=== PATIENT | female | born 2000 | race Caucasian/White ===

== ENCOUNTER → 2022-09-11 08:28 | Outpatient (CLI) | payer OTHER, SELFPAY ==
--- NOTE | 2022-09-11 08:30 | DI.US.S_ITS ---
PROCEDURE: US OB <= 14 WEEKS FETUS INDICATIONS: dating and viability OUTSIDE/PRIOR DATING DATA: Last menstrual period (LMP): 07/11/2022. LMP-based estimated date of delivery (ROBB): 04/17/2023. First dating scan (date and location): 09/11/2022. Estimated date of delivery (ROBB) from first dating scan: 04/16/2023. TECHNIQUE: Real-time scanning was performed of the fetus and maternal pelvic organs, with image documentation. Endovaginal scanning was also performed to better visualize the fetus and maternal ovaries. COMPARISON: None. FINDINGS: Embryo: [place]-rump length of 2.3 cm corresponding to gestational age of 9 weeks 0 days. Heart rate: 175 beats per minute Maternal organs: Ovaries are unremarkable. Probable right corpus luteum. IMPRESSION: Single living intrauterine with gestational age of 9 weeks 0 days by crown-rump length, concordant with clinical dates. We strive to produce accurate, complete, and clear reports of imaging services. To assist us in improving patient care, this report was composed using standard report templates and voice recognition software. Therefore, it may contain abnormal punctuation, insertions and/or omissions. Occasional wrong-word or sound-alike substitutions may occur. Though we review the report and make efforts to correct it, we do recommend that the report be read carefully in proper context to recognize any text inaccuracies. Dictated by: Claudio Flower M.D. on 09/11/2022 at 12:40 Approved by: Claudio Flower M.D. on 09/11/2022 at 12:52
== END ==
PROVIDERS: Referring Provider Obstetrics & Gynecology; Visit Provider Obstetrics & Gynecology
DX: Z34.81 Encounter for supervision of other normal pregnancy, first trimester (principal); Z3A.09 9 weeks gestation of pregnancy
CPT/HCPCS: 76801; 76817

== ENCOUNTER → 2022-10-04 11:57 | Outpatient (CLI) | payer OTHER, SELFPAY ==
[2022-10-04 12:29] LABS: Specimen Label NATERA
[2022-10-04 13:14] LABS: Add Manual Diff / Slide Review NO; Basophils Absolute Auto 100 /uL (0-100); Basophils Percent Auto 0.5 % (0-2); Eosinophils Absolute Auto 100 /uL (0-450); Eosinophils Percent Auto 0.7 % (2-4); Hematocrit 37.2 % (36-46); Hemoglobin 12.7 g/dL (12.0-16.0); Lymphocytes Absolute Auto 1900 /uL (1100-4500); Lymphocytes Percent Auto 16.1 % (25-40); Mean Corpuscular HGB Conc 34.2 % (30-36); Mean Corpuscular Hemoglobin 30.6 PG (26-34); Mean Corpuscular Volume 89.3 fL (80-100); Monocytes Absolute Auto 800 /uL (0-900); Neutrophils Absolute Auto 9000 /uL (1500-7000); Neutrophils Percent Auto 75.7 % (50-75); Platelet Count 273 X10^3/uL (150-400); Red Blood Cell Count 4.16 X10^6/uL (4.0-5.2); Red Cell Distribution Width 12.8 % (11.6-14.8); White Blood Cell Count 11.8 X10^3/uL (4.5-11.0)
[2022-10-04 13:18] LABS: Appearance Urine UA CLEAR; Bilirubin Urine UA NEGATIVE (NEGATIVE); Color Urine UA YELLOW; Glucose Urine UA NEGATIVE (Negative); Ketones Urine UA NEGATIVE (NEGATIVE); Leukocyte Esterase Urine UA NEGATIVE (NEGATIVE); Nitrite Urine UA NEGATIVE (Negative); Occult Blood Urine UA NEGATIVE (Negative); Protein Urine UA NEGATIVE (Negative); Urobilinogen Urine UA 0.2 E.U./dL (0.2)
[2022-10-04 16:09] LABS: Hepatitis B Surface Antigen NEGATIVE s/c (NEGATIVE); Rubella Antibody IgG 72.4 IU/mL (>15)
[2022-10-04 16:16] LABS: Urine N gonorrhoeae NOT DETECTED
[2022-10-04 16:25] LABS: Urine Chlamydia NOT DETECTED
[2022-10-04 16:27] LABS: HIV 1 & 2 Ab/Ag 4th Gen Combo NEGATIVE (NEGATIVE); Hep C Virus Ab w/Reflex Quant NEGATIVE s/c (NEGATIVE)
[2022-10-05 07:23] LABS: RPR Screen Non Reactive (Non Reactive)
[2022-10-05 10:49] LABS: Varicella IgG Antibody 178 index (Immune >165)
== END ==
PROVIDERS: Referring Provider Obstetrics & Gynecology; Visit Provider Obstetrics & Gynecology
DX: Z34.81 Encounter for supervision of other normal pregnancy, first trimester (principal); Z3A.12 12 weeks gestation of pregnancy
CPT/HCPCS: 36415; 80055; 81003; 86787; 86803; 86850; 86900; 86901; 87086; 87389; 87491; 87591

== ENCOUNTER → 2022-11-01 12:07 | Outpatient (CLI) | payer OTHER, SELFPAY ==
[2022-11-05 13:09] LABS: AFP Value 28.6 ng/mL (.); Gest Age on Col Date 16.1 weeks (.); Insulin Dep Diabetes No (.); OSBR Risk 1IN 10000 (.); Results Report (.); Test Results *Screen Negative* (.)
== END ==
PROVIDERS: Referring Provider Obstetrics & Gynecology; Visit Provider Obstetrics & Gynecology
DX: Z34.82 Encounter for supervision of other normal pregnancy, second trimester (principal); Z3A.16 16 weeks gestation of pregnancy
CPT/HCPCS: 36415; 82105

== ENCOUNTER → 2022-11-28 08:36 | Outpatient (CLI) | payer OTHER, SELFPAY ==
--- NOTE | 2022-11-28 08:36 | DI.US.S_ITS ---
PROCEDURE: US OB >= 14 WEEKS FETUS INDICATIONS: ANATOMY OUTSIDE/PRIOR DATING DATA: Last menstrual period (LMP): 07/11/2022. LMP-based estimated date of delivery (ROBB): 04/17/2023. First dating scan (date and location): 09/11/2022. Estimated date of delivery (ROBB) from first dating scan: 04/16/2023. The calculations are made using the clinical ROBB of 04/17/2023. TECHNIQUE: Real-time scanning was performed of the fetus, with image documentation and biometric measurements. Endovaginal scanning: Performed COMPARISON: [facility], OB <= 14 WEEKS FETUS, 09/11/2022, 9:04. FINDINGS: General: A single living intrauterine gestation is present. Presentation: Breech. Placenta: Placental position is posterior. Low lying placenta with placental edge 1.0 cm from the internal cervical os. Amniotic fluid index: 9.6 cm, normal range is 5-24 cm. Single deepest vertical pocket is 3.8 cm. heart rate: 141 beats per minute. Maternal cervical canal: 4.7 cm long. Normal lower limit is 2.5 cm. biometrics: Biparietal diameter: 4.5 cm, 19 weeks 3 days Head circumference: 17.3 cm, 19 weeks 6 days Abdominal circumference: 15.1 cm, 20 weeks 2 days Femur length: 3.1 cm, 19 weeks 5 days estimated gestational age: 20 weeks 0 days Composite gestational age from present scan: 19 weeks 6 days Estimated weight and percentile: 326 g, 45th percentile Anatomic survey: Neuro: Ventricles are non-dilated at less than 10 mm. Cisterna magna is normal at 3-11 mm. Cerebellum is normal in size and morphology. Nuchal skin fold: Normal at less than 6 mm between 14-21 weeks gestational age. Face: Nose and lips, facial profile are normal. Spine: Cervical and thoracic spine appear unremarkable. Lumbar and sacral spine not well visualized. Heart: 4-chambered heart is present, with normal ventricular outflow tracts. Diaphragm: Diaphragm is intact. Stomach: Left-sided stomach is present. Kidneys: No hydronephrosis. Normal is less than 5 mm in 2nd trimester, less than 7 mm in 3rd trimester. Cord: 3-vessel cord. Placental cord insertion not well visualized. Bladder: Normal in size. Extremities: All 4 extremities identified. IMPRESSION: 1. Single living intrauterine . 2. Estimated weight at the 45th percentile. 3. Lumbar and sacral spine and placental cord insertion not well visualized. Attention on follow-up is recommended. 4. Low lying placenta. Attention on follow-up is recommended. 5. The visualized anatomy is within normal limits. We strive to produce accurate, complete, and clear reports of imaging services. To assist us in improving patient care, this report was composed using standard report templates and voice recognition software. Therefore, it may contain abnormal punctuation, insertions and/or omissions. Occasional wrong-word or sound-alike substitutions may occur. Though we review the report and make efforts to correct it, we do recommend that the report be read carefully in proper context to recognize any text inaccuracies. Dictated by: Claudio Flower M.D. on 11/28/2022 at 14:52 Approved by: Claudio Flower M.D. on 11/28/2022 at 15:14
== END ==
PROVIDERS: Referring Provider Obstetrics & Gynecology; Visit Provider Obstetrics & Gynecology
DX: O44.42 Low lying placenta NOS or without hemorrhage, second trimester (principal); Z3A.19 19 weeks gestation of pregnancy
CPT/HCPCS: 76811; 76817

== ENCOUNTER → 2023-01-10 07:31 | Outpatient (CLI) | payer OTHER, SELFPAY ==
[2023-01-10 09:37] LABS: Hematocrit 33.3 % (36-46); Hemoglobin 11.8 g/dL (12.0-16.0)
[2023-01-10 10:01] LABS: GTT (PREG) 1 Hour PP 50gm Dose 64 mg/dL (76-139)
== END ==
PROVIDERS: Referring Provider Obstetrics & Gynecology; Visit Provider Obstetrics & Gynecology
DX: Z34.82 Encounter for supervision of other normal pregnancy, second trimester (principal); Z3A.26 26 weeks gestation of pregnancy
CPT/HCPCS: 36415; 82950; 85014; 85018

== ENCOUNTER 2023-01-16 15:09 | Outpatient (CLI) | payer OTHER, SELFPAY | END 2023-01-16 15:52 | disposition home or self-care (01) | LOC: OB 01-17 10:30 | PROVIDERS: Referring Provider Obstetrics & Gynecology; Visit Provider Obstetrics & Gynecology | DX: O16.3 Unspecified maternal hypertension, third trimester (principal); Z3A.27 27 weeks gestation of pregnancy | CPT/HCPCS: 59025; G0378; G0379 ==

== ENCOUNTER → 2023-03-04 07:40 | Outpatient (CLI) | payer OTHER, SELFPAY ==
--- NOTE | 2023-03-04 07:41 | DI.US.S_ITS ---
PROCEDURE: US OB LIMITED INDICATIONS: SIZE LESS THAN DATES. BICORNUATE UTERUS. OUTSIDE/PRIOR DATING DATA: Last menstrual period (LMP): 07/11/2022 LMP-based estimated date of delivery (ROBB): 04/17/2023 First dating scan (date and location): 09/11/2022 Estimated date of delivery (ROBB) from first dating scan: 04/16/2023 The calculations are made using the clinical ROBB of 04/17/2023. TECHNIQUE: Real-time scanning was performed of the fetus, with image documentation and biometric measurements. Endovaginal scanning: Performed for better visualization of the cervix. COMPARISON: [facility], OB <= 14 WEEKS FETUS, 09/11/2022, 9:04. [facility], OB >= 14 WEEKS FETUS, 11/28/2022, 8:59. FINDINGS: General: A single living intrauterine gestation is present. Presentation: Vertex Placenta: Placental position is posterior. Lower margin of the placenta is approximately 2.5 cm from the internal cervical os on transvaginal images. Amniotic fluid index: 14.4 cm, normal range is 5-24 cm. Single deepest vertical pocket is 4.4 cm. heart rate: 145 beats per minute. Maternal cervical canal: 4.3 cm long. Normal lower limit is 2.5 cm. biometrics: Biparietal diameter: 7.6 cm, 30 weeks 5 days Head circumference: 29.7 cm, 32 weeks 6 days Abdominal circumference: 27.8 cm, 31 weeks 6 days Femur length: 6.4 cm, 33 weeks 0 days Clinically estimated gestational age: 33 weeks 5 days Composite gestational age from present scan: 32 weeks 1 day Estimated weight and percentile: 1915 g, 9th percentile Umbilical artery Doppler: 2.9, 2.7, 2.9 IMPRESSION: 1. Single live intrauterine . 2. Estimated weight is 1519 g, 9th percentile for gestational age. 3. Amniotic fluid index is within normal limits at 14.4 cm. 4. Umbilical artery Doppler is normal with preserved diastolic flow. 5. Inferior placental margin is 2.5 cm from the internal cervical os, which is lower limits of normal. We strive to produce accurate, complete, and clear reports of imaging services. To assist us in improving patient care, this report was composed using standard report templates and voice recognition software. Therefore, it may contain abnormal punctuation, insertions and/or omissions. Occasional wrong-word or sound-alike substitutions may occur. Though we review the report and make efforts to correct it, we do recommend that the report be read carefully in proper context to recognize any text inaccuracies. Approved by: Claudio Bolanos M.D. on 03/04/2023 at 13:08
== END ==
PROVIDERS: Referring Provider Obstetrics & Gynecology; Visit Provider Obstetrics & Gynecology
DX: Q51.3 Bicornate uterus; O26.843 Uterine size-date discrepancy, third trimester; O34.03 Maternal care for unspecified congenital malformation of uterus, third trimester; Z3A.32 32 weeks gestation of pregnancy
CPT/HCPCS: 76815; 76817; 76820

== ENCOUNTER 2023-03-13 08:52 | Outpatient (CLI) | payer OTHER, SELFPAY | END 2023-03-13 09:40 | disposition home or self-care (01) | LOC: LABOR 09:52 → OB 03-15 16:16 | PROVIDERS: Referring Provider Obstetrics & Gynecology; Visit Provider Obstetrics & Gynecology | DX: O36.5930 Maternal care for other known or suspected poor fetal growth, third trimester, not applicable or unspecified (principal); Z3A.35 35 weeks gestation of pregnancy | CPT/HCPCS: 59025; 76819; G0378; G0379 ==

== ENCOUNTER → 2023-03-13 12:04 | Outpatient (CLI) | payer OTHER, SELFPAY ==
--- NOTE | 2023-03-13 12:05 | DI.US.S_ITS ---
PROCEDURE: US OB BIOPHYSICAL PROFILE INDICATIONS: INTRAUTERINE GROWTH RESTRICTION-BIOPHYSICAL PROFILE/DOPPLERS OUTSIDE/PRIOR DATING DATA: Last menstrual period (LMP): 07/11/2022. LMP-based estimated date of delivery (ROBB): 04/17/2023. First dating scan (date and location): 09/11/2022. Estimated date of delivery (ROBB) from first dating scan: 04/16/2023. TECHNIQUE: Real-time scanning was performed of the fetus for biophysical profile, with image documentation. Color and pulse Doppler interrogation was also performed of the umbilical artery near its insertion into the placenta. Endovaginal scanning: Not performed COMPARISON: [facility], , OB LIMITED, 03/04/2023, 8:03. FINDINGS: General: A single living intrauterine gestation is present. Presentation: Vertex. Placenta: Placental position is posterior , without previa. Amniotic fluid index: 10.4 cm, normal range is 5-24 cm. Single deepest vertical pocket is 3.6 cm. heart rate: 152 beats per minute. Maternal cervical canal: 4.4 cm long. Normal lower limit is 2.5 cm. estimated gestational age: 35 weeks 0 days Biophysical profile: Tone: 2 points. Movement: 2 points. Respiration: 2 points. Largest pocket of fluid: 2 points. Umbilical artery Doppler: S:D ratios 2.8-3.2, with preserved antegrade diastolic flow. IMPRESSION: 1. Single living intrauterine in vertex presentation. 2. Biophysical profile score 8/8. 3. Umbilical artery Doppler within normal limits. We strive to produce accurate, complete, and clear reports of imaging services. To assist us in improving patient care, this report was composed using standard report templates and voice recognition software. Therefore, it may contain abnormal punctuation, insertions and/or omissions. Occasional wrong-word or sound-alike substitutions may occur. Though we review the report and make efforts to correct it, we do recommend that the report be read carefully in proper context to recognize any text inaccuracies. Dictated by: Claudio Flower M.D. on 03/13/2023 at 13:29 Approved by: Claudio Flower M.D. on 03/13/2023 at 13:36
== END ==
PROVIDERS: Referring Provider Obstetrics & Gynecology; Visit Provider Obstetrics & Gynecology
DX: O36.5930 Maternal care for other known or suspected poor fetal growth, third trimester, not applicable or unspecified (principal); Z3A.35 35 weeks gestation of pregnancy
CPT/HCPCS: 76815; 76819

== ENCOUNTER 2023-03-15 07:47 | Outpatient (CLI) | payer OTHER, SELFPAY | END 2023-03-15 08:45 | disposition home or self-care (01) | LOC: LABOR 09:13 → OB 16:14 | PROVIDERS: Referring Provider Obstetrics & Gynecology; Visit Provider Obstetrics & Gynecology | DX: O36.5930 Maternal care for other known or suspected poor fetal growth, third trimester, not applicable or unspecified (principal); Z3A.35 35 weeks gestation of pregnancy | CPT/HCPCS: 59025; G0378; G0379 ==

== ENCOUNTER 2023-03-19 13:30 | Outpatient (CLI) | payer OTHER, SELFPAY | END 2023-03-19 14:35 | disposition home or self-care (01) | LOC: LABOR 13:45 → OB 03-21 14:50 | PROVIDERS: Referring Provider Obstetrics & Gynecology; Visit Provider Obstetrics & Gynecology | DX: O36.5930 Maternal care for other known or suspected poor fetal growth, third trimester, not applicable or unspecified (principal); Z3A.35 35 weeks gestation of pregnancy; Z34.03 Encounter for supervision of normal first pregnancy, third trimester | CPT/HCPCS: 59025; 87653; G0378; G0379 ==

== ENCOUNTER → 2023-03-19 14:57 | Outpatient (CLI) | payer OTHER, SELFPAY ==
[2023-03-20 13:55] LABS: Strep Grp B PCR NEG for Grp B Strep
== END ==
PROVIDERS: Visit Provider Obstetrics & Gynecology
DX: Z34.03 Encounter for supervision of normal first pregnancy, third trimester (principal); Z3A.35 35 weeks gestation of pregnancy
CPT/HCPCS: 87653

== ENCOUNTER 2023-03-21 16:07 | Outpatient (CLI) | payer OTHER, SELFPAY | END 2023-03-21 16:45 | disposition home or self-care (01) | LOC: OB 03-28 09:00 | PROVIDERS: Referring Provider Obstetrics & Gynecology; Visit Provider Obstetrics & Gynecology | DX: O36.5930 Maternal care for other known or suspected poor fetal growth, third trimester, not applicable or unspecified (principal); Z3A.36 36 weeks gestation of pregnancy | CPT/HCPCS: 59025; 84112; G0378; G0379 ==

== ENCOUNTER → 2023-03-22 13:12 | Outpatient (CLI) | payer OTHER, SELFPAY ==
--- NOTE | 2023-03-22 13:13 | DI.US.S_ITS ---
PROCEDURE: US OB BIOPHYSICAL PROFILE INDICATIONS: IUGR OUTSIDE/PRIOR DATING DATA: Last menstrual period (LMP): 07/11/2022. LMP-based estimated date of delivery (ROBB): 04/17/2023. First dating scan (date and location): 09/11/2022. Estimated date of delivery (ROBB) from first dating scan: 04/16/2023. TECHNIQUE: Real-time scanning was performed of the fetus for biophysical profile, with image documentation. Color and pulse Doppler interrogation was also performed of the umbilical artery near its insertion into the placenta. Endovaginal scanning: Not performed COMPARISON: [facility], OB BIOPHYSICAL PROFILE, 03/13/2023, 12:34. FINDINGS: General: A single living intrauterine gestation is present. Presentation: Vertex. Placenta: Placental position is posterior , without previa. Amniotic fluid index: 13.2 cm, normal range is 5-24 cm. Single deepest vertical pocket is 4.3 cm. heart rate: 127 beats per minute. Maternal cervical canal: 4.2 cm long. Normal lower limit is 2.5 cm. estimated gestational age: 36 weeks 2 days Biophysical profile: Tone: 2 points. Movement: 2 points. Respiration: 2 points. Largest pocket of fluid: 2 points. Umbilical artery Doppler: S: D ratios ranging from 2.8-3.1. Antegrade diastolic flow maintained. IMPRESSION: 1. Single living intrauterine in vertex presentation. 2. Biophysical profile score 8/8. 3. Umbilical artery Doppler within normal limits. We strive to produce accurate, complete, and clear reports of imaging services. To assist us in improving patient care, this report was composed using standard report templates and voice recognition software. Therefore, it may contain abnormal punctuation, insertions and/or omissions. Occasional wrong-word or sound-alike substitutions may occur. Though we review the report and make efforts to correct it, we do recommend that the report be read carefully in proper context to recognize any text inaccuracies. Dictated by: Claudio Flower M.D. on 03/22/2023 at 15:34 Approved by: Claudio Flower M.D. on 03/22/2023 at 15:37
== END ==
PROVIDERS: Referring Provider Obstetrics & Gynecology; Visit Provider Obstetrics & Gynecology
DX: O36.5930 Maternal care for other known or suspected poor fetal growth, third trimester, not applicable or unspecified (principal); Z3A.36 36 weeks gestation of pregnancy
CPT/HCPCS: 76819; 76820

== ENCOUNTER → 2023-03-26 08:40 | Outpatient (CLI) | payer OTHER, SELFPAY ==
--- NOTE | 2023-03-26 08:42 | DI.US.S_ITS ---
PROCEDURE: US OB LIMITED INDICATIONS: Growth and BPP OUTSIDE/PRIOR DATING DATA: Last menstrual period (LMP): 07/11/2022 LMP-based estimated date of delivery (ROBB): 04/17/2023 First dating scan (date and location): 09/11/2022 Estimated date of delivery (ROBB) from first dating scan: 04/16/2023 The calculations are made using the working ROBB of 04/17/2023. TECHNIQUE: Real-time scanning was performed of the fetus, with image documentation and biometric measurements. Biophysical profile was also obtained. Endovaginal scannin gated COMPARISON: [facility], OB LIMITED, 03/04/2023, 8:03. FINDINGS: General: A single living intrauterine gestation is present. Presentation: Vertex. Placenta: Placental position is posterior, without previa. Amniotic fluid index: 13.2 cm, normal range is 5-24 cm. Single deepest vertical pocket is 4.9 cm. heart rate: 128 beats per minute. Maternal cervical canal: Not evaluated. biometrics: Biparietal diameter: 8.3 cm, 33 weeks, 3 days. Head circumference: 31.5 cm, 35 weeks, 3 days. Abdominal circumference: 30.4 cm, 34 weeks, 2 days. Femur length: 7.2 cm, 36 weeks, 6 days. Clinically estimated gestational age: 36 weeks, 6 days. Composite gestational age from present scan: 35 weeks, 0 day. Estimated weight and percentile: 2580 g, 14%. Biophysical profile: Tone: 2 points. Movement: 2 points. Respiration: 2 points. Largest pocket of fluid: 2 points. Umbilical artery Doppler: 2.9, 2.6, 2.7 IMPRESSION: 1. Single live intrauterine gestation with fetus in vertex presentation. heart rate is 128 beats per minute. Normal amount of amniotic fluid. Estimated weight is at 14%. 2. biophysical profile score is 8/8. 3. Normal umbilical artery S/D ratio. We strive to produce accurate, complete, and clear reports of imaging services. To assist us in improving patient care, this report was composed using standard report templates and voice recognition software. Therefore, it may contain abnormal punctuation, insertions and/or omissions. Occasional wrong-word or sound-alike substitutions may occur. Though we review the report and make efforts to correct it, we do recommend that the report be read carefully in proper context to recognize any text inaccuracies. Dictated by: Edgar Rodriguez M.D. on 03/26/2023 at 11:32 Approved by: Edgar Rodriguez M.D. on 03/26/2023 at 16:14
== END ==
PROVIDERS: Referring Provider Obstetrics & Gynecology; Visit Provider Obstetrics & Gynecology
DX: O26.843 Uterine size-date discrepancy, third trimester (principal); O36.5930 Maternal care for other known or suspected poor fetal growth, third trimester, not applicable or unspecified; Z3A.35 35 weeks gestation of pregnancy
CPT/HCPCS: 76815; 76819

== ENCOUNTER 2023-03-26 08:46 | Outpatient (CLI) | payer OTHER, SELFPAY | END 2023-03-26 09:40 | disposition home or self-care (01) | LOC: LABOR 10:00 → OB 03-28 07:40 | PROVIDERS: Referring Provider Obstetrics & Gynecology; Visit Provider Obstetrics & Gynecology | DX: O36.5930 Maternal care for other known or suspected poor fetal growth, third trimester, not applicable or unspecified (principal); O47.03 False labor before 37 completed weeks of gestation, third trimester; Z3A.36 36 weeks gestation of pregnancy; O26.843 Uterine size-date discrepancy, third trimester; Z3A.35 35 weeks gestation of pregnancy | CPT/HCPCS: 59025; 76815; 76819; G0378; G0379 ==

== ENCOUNTER 2023-03-29 07:43 | Outpatient (CLI) | payer OTHER, SELFPAY ==
--- NOTE | 2023-03-29 07:47 | DI.US.S_ITS ---
PROCEDURE: US OB BIOPHYSICAL PROFILE INDICATIONS: IUGR OUTSIDE/PRIOR DATING DATA: Last menstrual period (LMP): 07/11/2022 LMP-based estimated date of delivery (ROBB): 04/17/2023 First dating scan (date and location): 09/11/2022 Estimated date of delivery (ROBB) from first dating scan: 04/16/2023 The calculations are made using the working ROBB of 04/17/2023. TECHNIQUE: Real-time scanning was performed of the fetus, with image documentation . Biophysical profile was also obtained. Endovaginal scannin [place] it COMPARISON: [facility], , OB BIOPHYSICAL PROFILE, 03/22/2023, 13:48. FINDINGS: General: A single living intrauterine gestation is present. Presentation: Vertex Placenta: Placental position is posterior, without previa. Amniotic fluid index: 13.2 cm, normal range is 5-24 cm. Single deepest vertical pocket is 3.9 cm. heart rate: 127 beats per minute. Maternal cervical canal: Not evaluated. Clinically estimated gestational age: 37 weeks, 2 days. Biophysical profile: Tone: 2 points. Movement: 2 points. Respiration: 2 points. Largest pocket of fluid: 2 points. Umbilical artery Doppler: 2.7, 2.4, 2.5 IMPRESSION: 1. Single live intrauterine gestation with fetus in vertex presentation. heart rate is 127 beats per minute. Normal amount of amniotic fluid with [place] measures 13.2 cm. 2. biophysical profile score is 8/8. 3. Normal umbilical artery S/D ratio. We strive to produce accurate, complete, and clear reports of imaging services. To assist us in improving patient care, this report was composed using standard report templates and voice recognition software. Therefore, it may contain abnormal punctuation, insertions and/or omissions. Occasional wrong-word or sound-alike substitutions may occur. Though we review the report and make efforts to correct it, we do recommend that the report be read carefully in proper context to recognize any text inaccuracies. Dictated by: Edgar Rodriguez M.D. on 03/29/2023 at 9:18 Approved by: Egdar Rodriguez M.D. on 03/29/2023 at 9:20
== END 2023-03-29 08:50 | disposition home or self-care (01) ==
LOC: LABOR 08:05 → OB 04-08 06:29
PROVIDERS: Referring Provider Obstetrics & Gynecology; Visit Provider Obstetrics & Gynecology
DX: O36.5930 Maternal care for other known or suspected poor fetal growth, third trimester, not applicable or unspecified (principal); Z3A.37 37 weeks gestation of pregnancy
CPT/HCPCS: 59025; 76819; G0378; G0379

== ENCOUNTER 2023-04-02 09:08 | Outpatient (CLI) | payer OTHER, SELFPAY | END 2023-04-02 09:35 | disposition home or self-care (01) | LOC: OB 04-08 06:31 | PROVIDERS: Referring Provider Obstetrics & Gynecology; Visit Provider Obstetrics & Gynecology | DX: O36.5930 Maternal care for other known or suspected poor fetal growth, third trimester, not applicable or unspecified (principal); Z3A.37 37 weeks gestation of pregnancy | CPT/HCPCS: 59025; G0378; G0379 ==

== ENCOUNTER 2023-04-04 19:24 | Inpatient (IN) | payer OTHER, SELFPAY ==
[2023-04-04 20:00] VITALS: BP 122/77
--- NOTE | 2023-04-04 20:02 | PM.OBHP.1 ---
OB HPI Date/Time Date of admission: 04/04/23 Date Patient Seen: 04/04/23 Time Patient Seen: 20:02 History of Present Condition Chief complaint: Induction for IUGR 38+1 wks EGA : 2 Para: 0 Estimated Date of Delivery: 04/17/23 Estimated Gestational Age (weeks): 38+1 Narrative: Odessa Wick is a 22 year old admitted now at 38+ 1 weeks gestational age for induction due to IUGR for which she has been having twice weekly testing, all of which has been reassuring with normal [place]AK[place]IND[place] and normal Dopplers. Her most recent EFW places the baby's weight at the 14th percentile after discussion regarding all options the patient wishes to proceed with induction due to concerns over growth and well-being. course has been unremarkable with solid early dating, and appropriate milestones throughout with the exception of the IUGR noted in the 3rd trimester. GBS is negative. Indications Indication for induction OB: intra-uterine growth restriction History of Present care: good care Dating criteria: LMP confirmed by 1st trimester US Obstetrical complications: growth restriction Medical complications: none Preadmission Labs Blood type: O (+) positive -: Antibody screen: negative, GBS status: negative, HBsAG: negative, HIV: negative and RPR/VDLR: negative -: Chlamydia screen: not detected and Gonorrhea screen: not detected -: Rubella: immune and Varicella: immune HCT: 33.9 HCAB: negative PAP: Normal Quad screen: Normal (AFP testing negative for open neural tube defects) Cell-free DNA: Low risk female 1 hr GTT: 64 Prior (ies) History: SAB x 1 Evaluation Evaluation Baseline heart rate: 135 Variability: Moderate (11-25) monitor accelerations: Present Monitor Decelerations: Absent Contraction Frequency (minutes): 5 Uterine Contraction Intensity: Mild Category of Tracing: Reactive Status: Category l Dilation (cm): 0 Effacement (%): 50 Dilation: Closed Effacement: 40-50% station: -2 Position of cervix: mid Consistency: soft Villagomez score: 5 Non-invasive Membranes Rupture Test: negative [facility] Medical History (Updated 04/02/23 @ 09:12 by Michael De Souza MD) Anxiety (~2020) Bicornate uterus Depression (~2020) Heavy menstrual period (~2012) IBS (irritable bowel syndrome) Ovarian cyst (~2019) Surgical History (Updated 10/03/22 @ 21:07 by Lorrie Wolff) Anesthesia [place] teeth extracted (~03/2021) Family History (Updated 10/03/22 @ 21:10 by Lorrie Wolff) Brother Tetralogy of Fallot Mother Hypertension Mental health problem Grandmother Breast cancer Cancer of kidney Grandfather Heart disease Cancer Stroke Hyperlipidemia Mental health problem Grandfather Cancer Hypertension Social History marital status: number of children: 0 household members: spouse lives independently: Yes caregiver/support person: No housing: condominium (duplex house) pets and animals: No education level: college (some college) 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 ) special nicole needs: No travel history: over 6 months ago seatbelt use: always helmet use: Yes water heater temp set < 120 deg: Yes working smoke detector in home: Yes fire extinguisher in home: Yes carbon monox detector in home: Yes firearms in home: Yes firearms unloaded and locked: Yes do you feel safe at home: Yes Smoking Status: Former smoker Tobacco: How many years used: 4 second hand exposure: No alcohol intake: former (very rarely when not ) substance use type: does not use during the past year weight has: remained stable well-balanced diet: daily or most days daily servings fruits/ve-4 caffeine: Yes (Aware of 200mg limit) Type(s) of exercise: aerobic and weight lifting frequency: 3-4 times per week Meds Home Medications and Allergies Home Medications Medication Instructions Recorded Confirmed Type prenat.vits,tiny,qhn-xsgu-bihcc 1 tab PO DAILY 08/21/22 04/04/23 History oxycodone 5 mg tablet 5 mg PO Q6H PRN pain #12 tabs 04/05/23 Rx Allergies Allergy/AdvReac Type Severity Reaction Status Date / Time No Known Drug Allergies Allergy Verified 04/04/23 20:02 Review of Systems Review of Systems Narrative: Problem-specific ROS positives included in HPI Objective Labs 04/04/23 20:10 Assessment and Plan Assessment and Plan Assessment and Plan narrative: ASSESSMENT 1. Intrauterine , 38+ 1 weeks gestational age 2. Intrauterine growth restriction/small for gestational age 3. Group B negative status PLAN 1. Admit for cervical ripening and induction 2. See admission orders
[2023-04-04 20:24] LABS: Add Manual Diff / Slide Review NO; Basophils Absolute Auto 100 /uL (0-100); Basophils Percent Auto 0.7 % (0-2); Eosinophils Absolute Auto 100 /uL (0-450); Eosinophils Percent Auto 0.9 % (2-4); Hematocrit 33.9 % (36-46); Lymphocytes Absolute Auto 2000 /uL (1100-4500); Lymphocytes Percent Auto 19.1 % (25-40); Mean Corpuscular HGB Conc 35.5 % (30-36); Mean Corpuscular Hemoglobin 31.5 PG (26-34); Mean Corpuscular Volume 88.9 fL (80-100); Monocytes Absolute Auto 900 /uL (0-900); Monocytes Percent Auto 8.6 % (3-14); Neutrophils Absolute Auto 7300 /uL (1500-7000); Neutrophils Percent Auto 70.7 % (50-75); Platelet Count 178 X10^3/uL (150-400); Red Blood Cell Count 3.82 X10^6/uL (4.0-5.2); Red Cell Distribution Width 13.3 % (11.6-14.8); White Blood Cell Count 10.3 X10^3/uL (4.5-11.0)
[2023-04-04] MEDS: miSOPROStoL 25 MCG TABLET 50 MCG PO (20:39)
[2023-04-05] MEDS: miSOPROStoL 25 MCG TABLET 50 MCG PO ×3 (00:46→08:49)
--- NOTE | 2023-04-05 12:42 | PM.OBPNLAB ---
Date/Time Date Patient Seen: 04/05/23 Time Patient Seen: 12:42 Pain Control Pain control: tolerating well Pelvic Exam Dilation (cm): 1 Effacement (%): 80 station: -1 Amniotic membrane status: Ruptured (AROM, clear fluid 1240) Contractions Contractions on admission: none Monitor mode: External Contraction pattern: Irregular Contraction phase: Resting Contraction intensity: Mild Status status: Category l Heart Rate Baseline: 135 Monitor Accelerations: Present Monitor Decelerations: Absent Monitor Variability: Moderate Assessment and Plan Plan: begin patient augmentation Comments: Will initiate low-dose Pitocin which in conjunction with AROM should facilitate labor nicely.
[2023-04-05] MEDS: LACTATED RINGERS 1,000 ML 100 ML IV ×2 (13:17→16:05)
[2023-04-05] MEDS: OXYTOCIN PREMIX 30 UNIT/500 ML PLAST..BAG IV (13:18)
--- NOTE | 2023-04-05 14:39 | PM.AN.REGBLK ---
Regional Block Pre-procedure Procedure: Continuous Lumbar Epidural for L&D Attending OB provider: Michael De Souza PMH/ROS narrative: term (38+1) IOL for IUGR. No sig PMH. ASA Class: II Labs: Hct 33.9 % (36-46) L 04/04/23 20:10 Plt Count 178 X10^3/uL (150-400) 04/04/23 20:10 Medications: Current Medications Generic Name Dose Route Start Last Admin Trade Name Freq PRN Reason Stop Dose Admin Carboprost Tromethamine 250 mcg 04/04/23 19:56 Carboprost 250 Mcg/Ml Ampul IM Q90M PRN Bleeding Oxytocin/Lactated Ringer's 30 unit in 500 mls @ 200 mls/hr 04/04/23 19:56 Oxytocin Premix IV CONT PRN Bleeding Protocol Tranexamic Acid 1,000 mg/ 100 mls @ 200 mls/hr 04/04/23 19:56 Sodium Chloride IV NOW PRN Bleeding Lactated Ringer's 1,000 mls @ 100 mls/hr 04/04/23 20:00 04/05/23 13:17 Lactated Ringers IV 100 mls/hr CONT GUME Administration Oxytocin/Lactated Ringer's 30 unit in 500 mls @ 1 mls/hr 04/05/23 12:44 04/05/23 13:18 Oxytocin Premix IV 1 milliunit/min TITRATE GUME 1 mls/hr Administration Protocol 1 MILLIUNIT/MIN Lidocaine HCl 20 ml 04/04/23 19:56 Lidocaine 1% 20 Ml INJ INTRA-OP PRN Post Delivery Methylergonovine Maleate 0.2 mg 04/04/23 19:56 Methylergonovine 0.2 Mg Tablet PO Q6HR PRN Heavy Bleeding Methylergonovine Maleate 0.2 mg 04/04/23 19:56 Methylergonovine 0.2 Mg/Ml Vial IM NOW PRN Bleeding Misoprostol 800 mcg 04/04/23 19:56 Misoprostol 200 Mcg Tablet OH NOW PRN Bleeding Misoprostol 400 mcg 04/04/23 19:56 Misoprostol 200 Mcg Tablet SL NOW PRN Bleeding Misoprostol 50 mcg 04/05/23 00:45 04/05/23 08:49 Misoprostol 25 Mcg Tablet PO 50 mcg Q4H GUME Administration Naloxone HCl 0.2 mg 04/04/23 19:56 Naloxone 0.4 Mg/Ml Vial IV Q2MIN PRN Opiate Reversal Ondansetron HCl 4 mg 04/04/23 19:57 Ondansetron 4 Mg/2 Ml Inj IV Q4HR PRN Nausea And Vomiting Oxytocin 10 unit 04/04/23 19:56 Oxytocin 10 Unit/Ml Vial IM NOW PRN Bleeding Zolpidem Tartrate 5 mg 04/04/23 19:57 Zolpidem 5 Mg Tablet PO BEDTIME PRN Sleep Allergies: Allergies Allergy/AdvReac Type Severity Reaction Status Date / Time No Known Drug Allergies Allergy Verified 04/04/23 20:02 Procedure Insertion date: 04/05/23 Prep/Local: betadine x3 and 1% lidocaine Interspace: L2-3 Patient position: sitting Needle: 18 gauge TripChamp (CSE: 27g Pencan through Hustead, clear CSF, 2.5mg MPF bupiv) Loss of resistance with: saline MAYITO at (cm): 4 Catheter placed at SKIN (cm): 9 Catheter in SPACE (cm): 5 Insertion: No CSF, No Blood, No Paresthesia with insertion, No Paresthesia with injection and No Test dose reaction Initial Medications TEST DOSE time: 15:26 TEST DOSE: 1.5% lidocaine with epinephrine 1:200k (mL): 3 BOLUS DOSE time: 15:35 BOLUS DOSE (mL): 4 BOLUS DOSE med: other (infusate) Infusion INFUSION: 0.125% bupivacaine and with fentanyl 2 mcg/mL Initial rate (mL/hr): 8 Subsequent interventions: PCEA@8+4 Post-procedure Anesthesia time START: 15:14 Anesthesia time END: 18:58 Post-procedure Anesthesia Assessment: Yes CV function: HR/BP stable, Yes Resp function: RR/sat/airway adequate, Yes Post-op hydration adequate, Yes Pain control adequate, Yes Nausea & vomiting absent, Yes Temperature > 36 C, Yes Mental status appropriate and No Anesthesia complications
[2023-04-05] MEDS: FENT 2MCG/ML BUPIV 0.125% EPI 200 MCG/100 ML PLAST..BAG 6 MCG EPIDURAL (16:06)
[2023-04-05] MEDS: ePHEDrine 50 MG/ML VIAL 10 MG IV (16:16)
[2023-04-05] MEDS: LIDOCAINE 1% 20 ML INJ (19:25)
--- NOTE | 2023-04-05 19:30 | PM.OBPRVD ---
Events: Other (IUGR/ SGA) Labor & Delivery Delivery date: 04/05/23 Intrapartal Events: None Cervical ripening method: per misoprostal protocol Induction method: per pitocin protocol Delivery augmentation: rupture of membranes Delivery monitor: external FHT and external uterine Route of delivery: Episiotomy description: None L&D Laceration Description: Vaginal - 1st Degree and Labial (1st degree) Delivery repair: chromic Estimated blood loss (mL): 400 Anesthesia Type: Epidural and Local Complications: None Narrative: The patient pushed vigorously during her 46 minute 2nd stage and delivered spontaneously over an intact perineum, a viable female infant with weight 3038 gms. (6 lbs. 11.2 oz.), Apgars 7/9 , in the right occiput anterior position. a tight nuchal cord was encountered and could not reduced until after the was delivered. Skin to skin contact was initiated immediately and delayed cord clamping performed. Once doubly clamped cut, cord blood sample was obtained for routine studies. Gentle traction on the umbilical cord resulted in prompt delivery sudden which was found to be intact with a centrally inserted three-vessel cord. intravenous Pitocin was administered immediately and the post delivery blood loss was minimized. Inspection of the perineum revealed superficial lacerations of the right labia and the perineum both of which were closed with 3-0 chromic in a running interlocking stitch. 7 cc of 1% lidocaine was used to augment the epidural anesthesia. At the completion of the delivery process bleeding was minimal and mother and baby were both doing well. [place] Baby 1: gender: Female Presentation: vertex Position: Right Occiput Anterior Placenta delivery description: Spontaneous Cord Vessel Description: 3 Vessels score (1 min): 7 score (5 min): 9 weight: 6 lb 11.162 oz Plan for aftercare: Routine care
[2023-04-06] MEDS: IBUPROFEN 600 MG TABLET PO ×3 (01:50→13:56)
[2023-04-06] MEDS: DERMOPLAST SPRAY 20% 60 ML 1 SPRAY TOP (01:50)
[2023-04-06] MEDS: ACETAMINOPHEN 325 MG TABLET 650 MG PO ×3 (01:50→13:56)
[2023-04-06] MEDS: DOCUSATE 100 MG CAPSULE PO ×2 (01:50→07:54)
[2023-04-06 05:23] LABS: Add Manual Diff / Slide Review NO; Basophils Absolute Auto 100 /uL (0-100); Basophils Percent Auto 0.6 % (0-2); Eosinophils Absolute Auto 0 /uL (0-450); Eosinophils Percent Auto 0.3 % (2-4); Hematocrit 27.7 % (36-46); Hemoglobin 9.8 g/dL (12.0-16.0); Lymphocytes Absolute Auto 2200 /uL (1100-4500); Lymphocytes Percent Auto 15.5 % (25-40); Mean Corpuscular HGB Conc 35.2 % (30-36); Mean Corpuscular Hemoglobin 31.4 PG (26-34); Mean Corpuscular Volume 89.1 fL (80-100); Monocytes Absolute Auto 1400 /uL (0-900); Monocytes Percent Auto 9.7 % (3-14); Neutrophils Absolute Auto 10600 /uL (1500-7000); Neutrophils Percent Auto 73.9 % (50-75); Platelet Count 158 X10^3/uL (150-400); Red Blood Cell Count 3.11 X10^6/uL (4.0-5.2); Red Cell Distribution Width 13.1 % (11.6-14.8); White Blood Cell Count 14.4 X10^3/uL (4.5-11.0)
--- NOTE | 2023-04-06 12:13 | PM.OBDS.1 ---
Discharge Providers Provider Date of admission: 04/04/23 19:24 Discharge Date: 04/06/23 Primary care physician: Tiago DELANEY Provider Consults: 04/04/23 19:56 Consult to Anesthesiology Urgent Comment: Consulting Provider: Michael De Souza Reason for consultation: Epidural Has provider been notified: No 04/06/23 19:28 Consult to Superintendent Stations Routine Comment: Discharge provider: Michael De Souza MD Summary Hospital Course Date Patient Seen: 04/06/23 Time Patient Seen: 12:14 Diagnoses: Intrauterine gestation, [place], 38+ 2 weeks gestational age. Suspected intrauterine growth restriction Hospital Course: [place] was admitted on the evening of 04/04/2023 with suspected intrauterine growth restriction for induction and delivery at 38+ 1 weeks gestational age she was initiated on oral Cytotec for ripening and AROM was performed mid day on 04/05/2023. She progressed well in labor with Pitocin augmentation and continuous lumbar epidural anesthesia resulting in spontaneous vaginal on the evening of 04/05/2023 of a viable female , 7/9, and weight of 3-0 3 8 g (6 lb 11.2 oz). Following delivery, both mother and baby have done extremely well with mother experiencing prompt return of bowel and bladder function, she is ambulating independently, tolerating a regular diet, and her pain is well controlled with oral pain medications. She will be discharged at this time in an afebrile normotensive condition to home after counseling regarding precautionary symptoms, limitations activity, medications, and plans for follow-up which will be in 6 weeks. Medications at discharge will include resumption of her vitamins as well as iron and vitamin-C once daily for the next 30 days. Peripartum Data Delivery Method: Natural Vaginal Laceration Description: Perineal - 1st Degree and Labial (First-degree, right) Episiotomy description: None complications: none [place] 1: Gender: Female Disposition of : home Status at Discharge Cognitive/behavioral status at discharge: oriented Functional status at discharge: independent ambulation Overall status at discharge: patient is progressing back to baseline Time Spent with Patient Time attestation: Total time spent providing and/or coordinating discharge services: Time spent: Less than 30 minutes Objective Labs 04/06/23 05:10 Labs: Laboratory Results - last 24 hr 04/06/23 05:10 WBC 14.4 H RBC 3.11 L Hgb 9.8 L Hct 27.7 L MCV 89.1 MCH 31.4 MCHC 35.2 RDW 13.1 Plt Count 158 Neut % (Auto) 73.9 Lymph % (Auto) 15.5 L [place] % (Auto) 9.7 Eos % (Auto) 0.3 L Baso % (Auto) 0.6 Neut # (Auto) 27887 H Lymph # (Auto) 2200 [place] # (Auto) 1400 H Eos # (Auto) 0 Baso # (Auto) 100 Exam Const General: cooperative and comfortable Nutritional Appearance: average body habitus Orientation: alert and oriented x3 HENMT Head: normal to inspection, atraumatic and abrasion Ears: hearing grossly normal bilaterally Face and sinus: face symmetric Eyes General: appearance normal, both eyes and all related structures Conjunctivae: conjunctivae normal Sclera: sclerae normal EOM: EOM intact bilaterally Neck Neck: normal visual inspection Resp Effort & Inspection: normal respiratory effort and able to speak in complete sentences GI Inspection: normal to inspection Palpation: soft and no hepatosplenomegaly External Female Exam: other (No significant bleeding noted) Extrem General: no calf tenderness Psych Appearance: grossly normal Mental Status: mental status grossly normal Speech and Movement: speech and movement normal Mood: congruent mood Affect: normal affect Attitude: cooperative Thought Process: normal Thought Content: normal Judgment: judgment good Discharge Plan Discharge Plan Patient Disposition: Home Provider Discharge Comment: Please review the written instructions you received when you were discharged from the hospital. Your follow-up appointment is scheduled for 6 weeks following your delivery and I look forward to seeing you then. If however in the meanwhile you have any issues, concerns, or questions, please contact me either through the office phone at [phone], or via the patient portal. Discharge orders & Medications Prescriptions: Continued prenat.vits,tiny,roz-grse-rbnxi Tablet 1 tab PO DAILY Follow up/Referrals: Michael De Souza MD [Physician] - (please call [phone] for your 6 week appt w/ Dr. De Souza) Discharge Health Status Multidrug resistant organism: No MDRO Diet/Activity/Treatments Diet: Diet as Tolerated Activity: As tolerated Other treatments: Oezg-oiv-drpzxwa Tylenol and/or ibuprofen may be used for pain relief. Zjhr-vna-jqllxmf stool softeners and/or MiraLax may be used as needed for constipation Skin/Wound/Dressing Care Report to your healthcare provider any signs of infection, such as:: chills, fever, increased pain, unusual drainage and unusual redness Dressing: N/A Visit Report/Discharge Packet Instructions: DI for Labor and Delivery, Vaginal , DI for and Nipple Soreness Stand Alone Forms: Discharge: Care Discharge Data Primary Care Provider: Tiago Bauman Attending Provider: Michael De Souza Admit Date/Time: 04/04/23 19:24
== END 2023-04-06 14:08 | disposition home or self-care (01) | DRG 807 ==
PROVIDERS: Admitting Provider Obstetrics & Gynecology; Referring Provider Obstetrics & Gynecology; Visit Provider Obstetrics & Gynecology
DX: O36.5930 Maternal care for other known or suspected poor fetal growth, third trimester, not applicable or unspecified (principal); Z37.0 Single live birth; Z3A.38 38 weeks gestation of pregnancy; O70.0 First degree perineal laceration during delivery
CPT/HCPCS: 36415; 59050; 59200; 59400; 85025; 86850; 86900; 86901; G0378; G0379; J2590

== ENCOUNTER → 2024-03-30 10:12 | Outpatient (CLI) | payer OTHER, SELFPAY ==
--- NOTE | 2024-03-30 10:13 | DI.US.S_ITS ---
PROCEDURE: US OB <= 14 WEEKS FETUS INDICATIONS: dating and viability OUTSIDE/PRIOR DATING DATA: Last menstrual period (LMP): 02/02/2024 LMP-based estimated date of delivery (ROBB): 11/08/2024 First dating scan (date and location): 03/30/2024 Estimated date of delivery (ROBB) from first dating scan: 11/09/2024 TECHNIQUE: Real-time scanning was performed of the fetus and maternal pelvic organs, with image documentation. Endovaginal scanning was also performed to better visualize the fetus and maternal ovaries. COMPARISON: [facility], , OB <= 14 WEEKS FETUS, 09/11/2022, 9:04. FINDINGS: Embryo: Single intrauterine gestational sac with fetus and yolk sac seen. [place]-rump length measures 1.6 cm. Estimated gestational age is 8 weeks, 0 day. Estimated gestational age based on last menstrual period is 8 weeks, 1 day. Heart rate: 178 beats per minute. Cervix is closed and measures 2.6 cm in length. No perigestational hematoma is seen. Maternal organs: Ovaries are visualized and are within normal limits. Small amount of free fluid is seen in posterior cul-de-sac. IMPRESSION: 1. Single live intrauterine gestation with fetus and yolk sac seen. heart rate is 178 beats per minute. Estimated gestational age based on current study is 8 weeks, 0 day. 2. Normal appearing bilateral ovaries. Nonspecific small amount of fluid within posterior cul-de-sac. No perigestational hemorrhage. We strive to produce accurate, complete, and clear reports of imaging services. To assist us in improving patient care, this report was composed using standard report templates and voice recognition software. Therefore, it may contain abnormal punctuation, insertions and/or omissions. Occasional wrong-word or sound-alike substitutions may occur. Though we review the report and make efforts to correct it, we do recommend that the report be read carefully in proper context to recognize any text inaccuracies. Dictated by: Edgar Rodriguez M.D. on 03/30/2024 at 15:27 Approved by: Edgar Rodriguez M.D. on 03/30/2024 at 15:29
== END ==
PROVIDERS: Referring Provider Obstetrics & Gynecology; Visit Provider Obstetrics & Gynecology
DX: Z34.81 Encounter for supervision of other normal pregnancy, first trimester (principal); Z3A.08 8 weeks gestation of pregnancy
CPT/HCPCS: 76801

== ENCOUNTER 2024-04-11 20:39 | Emergency (ER) | payer OTHER, SELFPAY ==
[2024-04-11 20:47] VITALS: BP 138/89; PULSE 93; RESP 20; TEMP 37; O2SAT 98; BMI 22.1
--- NOTE | 2024-04-11 21:14 | ED_ITS ---
HPI - URI/Sore Throat General Chief Complaint: Upper Respiratory Symptoms Stated Complaint: sick t-14/cough/chest/10 wks Time Seen by Provider: 04/11/24 20:57 Source: patient Mode of arrival: Ambulatory History of Present Illness HPI Narrative: 23-year-old female at 10 weeks' gestational age presents with nonproductive cough for the last 2 weeks. Patient states that because she was she was concerned that it may be going into her chest and wants to make sure that nothing will affect her . Denies fevers, shortness of breath, chest pain, leg swelling, other complaints at this time. Related Data Home Medications Medication Instructions Recorded Confirmed prenat.vits,tiny,duw-hfaw-jyvbh 1 tab PO DAILY 08/21/22 03/16/24 Previous Rx's Medication Instructions Recorded sertraline 50 mg tablet 50 mg PO DAILY Anxiety 01/21/24 #30 tabs benzonatate 100 mg capsule 100 mg PO BID-TID PRN cough #30 04/11/24 caps Allergies Allergy/AdvReac Type Severity Reaction Status Date / Time No Known Drug Allergies Allergy Verified 03/16/24 15:34 Patient History Medical History Heavy menstrual period (~2012) Vaginal delivery (~04/05/23) IUGR (intrauterine growth restriction) affecting care of mother Size of fetus inconsistent with dates in third trimester Ovarian cyst (~2019) IBS (irritable bowel syndrome) Surgical History Anesthesia [place] teeth extracted (~03/2021) Family History Brother Tetralogy of Fallot Mother Hypertension Depression Anxiety Grandmother Breast cancer Cancer of kidney Grandfather Heart disease Cancer Stroke Hyperlipidemia Grandfather Cancer Hypertension Father Depression Social History marital status: number of children: 1 household members: spouse lives independently: Yes caregiver/support person: Yes housing: [facility]) pets and animals: No education level: college (some college) 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 ) special nicole needs: No travel history: recent ([place]) and over 6 months ago seatbelt use: always helmet use: Yes water heater temp set < 120 deg: Yes working smoke detector in home: Yes fire extinguisher in home: Yes carbon monox detector in home: Yes firearms in home: Yes firearms unloaded and locked: Yes do you feel safe at home: Yes Smoking Status: Former smoker Tobacco: How many years used: 4 second hand exposure: No alcohol intake: former (very rarely when not ) substance use type: does not use during the past year weight has: other (back to pre-baby weight) well-balanced diet: daily or most days daily servings fruits/ve-4 caffeine: Yes (Aware of 200mg limit) Type(s) of exercise: aerobic and weight lifting frequency: 3-4 times per week Smoking Status: Former smoker Substance Use Type: does not use Exam Initial Vital Signs Initial Vital Signs: Vital Signs Temperature 98.6 F 04/11/24 20:47 Pulse Rate 93 H 04/11/24 20:47 Respiratory Rate 20 04/11/24 20:47 Blood Pressure 138/89 04/11/24 20:47 Pulse Oximetry 98 04/11/24 20:47 Oxygen Delivery Method Room Air 04/11/24 20:47 Const: Awake, alert, no acute distress, nontoxic appearing Cardiac: regular rate, regular rhythm RESP: unlabored, clear bilaterally, no wheezing GI: Soft, nontender, nondistended Skin: Warm, Dry, intact, no rashes Neuro: AO x3, CN II-XII grossly intact, moves all extremities Course Vital Signs Vital signs: Vital Signs - 8 hr 04/11/24 20:47 04/11/24 21:27 Temperature 98.6 F Pulse Rate 93 H 96 H Respiratory Rate 20 16 Blood Pressure 138/89 106/78 Pulse Oximetry 98 98 Oxygen Delivery Method Room Air Room Air MDM - URI/Sore Throat Differential Diagnosis Differential diagnosis: Likely upper respiratory infection, viral infection and bronchitis MDM Narrative Medical decision making narrative: Well appearing patient with 2 weeks of nonproductive cough. Physical exam is unremarkable, lungs are clear to auscultation bilaterally, vital signs stable. Likely bronchitis. Offered patient chest x-ray with abdominal shielding in , patient declined. Liset Mcgraw sent to pharmacy of choice Discharge Plan Departure Patient Disposition: Home Clinical Impression: Bronchitis Instructions: DI for Acute Bronchitis Activity Restrictions/Additional Instructions: Your vitals today are normal and your oxygen saturation is perfect. I do not hear any evidence of pneumonia or wheezing in your lungs. Cough medication has been sent to your pharmacy, you may take this occasionally for cough if needed. I anticipate that your symptoms we will resolve in the next week or two. Stay hydrated and drink plenty of fluids Prescriptions: New benzonatate 100 mg capsule 100 mg PO BID-TID PRN (Reason: cough) Qty: 30 0RF No Action sertraline 50 mg tablet 50 mg PO DAILY Qty: 30 6RF Rx Instructions: Take 1/2 tablet daily for 3 days then increase to full dose prenat.vits,tiny,rds-[id number] Tablet 1 tab PO DAILY Referrals: ProviderTiago [Primary Care Provider] - Stand Alone Forms: Patient Portal/API
[2024-04-11 21:27] VITALS: BP 106/78; PULSE 96; RESP 16; O2SAT 98
== END 2024-04-11 21:28 | disposition home or self-care (01) ==
PROVIDERS: Emergency Provider Emergency Medicine
DX: O26.891 Other specified pregnancy related conditions, first trimester (principal); J40 Bronchitis, not specified as acute or chronic; Z3A.10 10 weeks gestation of pregnancy; Z87.891 Personal history of nicotine dependence
CPT/HCPCS: 99281; 99283

== ENCOUNTER → 2024-05-01 20:52 | Outpatient (ROUT) | payer OTHER, SELFPAY ==
[2024-05-01 22:27] LABS: Urine N gonorrhoeae NOT DETECTED
[2024-05-01 22:29] LABS: Urine Chlamydia NOT DETECTED
== END ==
PROVIDERS: Visit Provider Student in an Organized Health Care Education/Training Program
DX: Z11.3 Encounter for screening for infections with a predominantly sexual mode of transmission (principal)
CPT/HCPCS: 87491; 87591

== ENCOUNTER → 2024-05-04 14:12 | Outpatient (CLI) | payer OTHER, SELFPAY ==
[2024-05-04 15:22] LABS: Natera Collection Specimen Collected
[2024-05-04 15:40] LABS: Add Manual Diff / Slide Review NO; Basophils Absolute Auto 100 /uL (0-100); Basophils Percent Auto 0.9 % (0-2); Eosinophils Absolute Auto 100 /uL (0-450); Eosinophils Percent Auto 1.2 % (2-4); Hematocrit 37.6 % (36-46); Hemoglobin 13.4 g/dL (12.0-16.0); Lymphocytes Absolute Auto 2100 /uL (1100-4500); Lymphocytes Percent Auto 20.3 % (25-40); Mean Corpuscular HGB Conc 35.5 % (30-36); Mean Corpuscular Hemoglobin 30.7 PG (26-34); Mean Corpuscular Volume 86.5 fL (80-100); Monocytes Absolute Auto 600 /uL (0-900); Monocytes Percent Auto 5.7 % (3-14); Neutrophils Absolute Auto 7400 /uL (1500-7000); Neutrophils Percent Auto 71.9 % (50-75); Platelet Count 243 X10^3/uL (150-400); Red Blood Cell Count 4.35 X10^6/uL (4.0-5.2); Red Cell Distribution Width 13.6 % (11.6-14.8); White Blood Cell Count 10.3 X10^3/uL (4.5-11.0)
[2024-05-04 18:12] LABS: HIV 1 & 2 Ab/Ag 4th Gen Combo NEGATIVE (NEGATIVE); Hep C Virus Ab w/Reflex Quant NEGATIVE s/c (NEGATIVE); Hepatitis B Surface Antigen NEGATIVE s/c (NEGATIVE); Rubella Antibody IgG 66.3 IU/mL (>15)
[2024-05-05 12:13] LABS: Varicella IgG Antibody 208 index (Immune >165)
== END ==
PROVIDERS: Obstetrics & Gynecology; Referring Provider Student in an Organized Health Care Education/Training Program; Visit Provider Student in an Organized Health Care Education/Training Program
DX: Z34.81 Encounter for supervision of other normal pregnancy, first trimester (principal)
CPT/HCPCS: 80055; 86787; 86803; 86850; 86900; 86901; 87086; 87389

== ENCOUNTER → 2024-05-29 13:47 | Outpatient (CLI) | payer OTHER, SELFPAY | PROVIDERS: Referring Provider Obstetrics & Gynecology; Visit Provider Obstetrics & Gynecology | DX: Z36.0 Encounter for antenatal screening for chromosomal anomalies (principal) | CPT/HCPCS: 36415; 82105 ==

== ENCOUNTER → 2024-06-22 13:35 | Outpatient (CLI) | payer OTHER, SELFPAY ==
--- NOTE | 2024-06-22 13:36 | DI.US.S_ITS ---
PROCEDURE: US OB >= 14 WEEKS FETUS INDICATIONS: 20 weeks anatomy OUTSIDE/PRIOR DATING DATA: Last menstrual period (LMP): 02/02/2024 LMP-based estimated date of delivery (ROBB): 11/08/2024 First dating scan (date and location): 03/30/2024 Estimated date of delivery (ROBB) from first dating scan: 11/09/2024 The calculations are made using the clinical ROBB of 11/08/2024. TECHNIQUE: Real-time scanning was performed of the fetus, with image documentation and biometric measurements. Endovaginal scanning: Not performed. COMPARISON: [facility], OB <= 14 WEEKS FETUS, 03/30/2024, 10:35. [facility], OB <= 14 WEEKS FETUS, 05/01/2024, 15:51. FINDINGS: General: A single living intrauterine gestation is present. Presentation: Breech Placenta: Placental position is posterior. Lower placental margin is approximately 1.5 cm from the internal cervical os. Amniotic fluid index: 11.9 cm, normal range is 5-24 cm. Single deepest vertical pocket is 3.9 cm. heart rate: 152 beats per minute. Maternal cervical canal: 5.0 cm long. Normal lower limit is 2.5 cm. biometrics: Biparietal diameter: 4.7 cm, 20 weeks 1 day Head circumference: 16.8 cm, 19 weeks 3 days Abdominal circumference: 15.8 cm, 20 weeks 6 days Femur length: 3.1 cm, 19 weeks 5 days Clinically estimated gestational age: 20 weeks 1 day Composite gestational age from present scan: 20 weeks 0 days Estimated weight and percentile: 342 g, 52nd percentile Anatomic survey: Neuro: Ventricles are non-dilated at less than 10 mm. Cisterna magna is normal at 3-11 mm. Cerebellum is normal in size and morphology. Nuchal skin fold: Normal at less than 6 mm between 14-21 weeks gestational age. Face: Nose and lips, facial profile are normal. Spine: No evidence for spina bifida. Heart: 4-chambered heart is present, with normal ventricular outflow tracts. Diaphragm: Diaphragm is intact. Stomach: Left-sided stomach is present. Kidneys: No hydronephrosis. Normal is less than 5 mm in 2nd trimester, less than 7 mm in 3rd trimester. Cord: 3-vessel cord has orthotopic insertion. Bladder: Normal in size. Extremities: All 4 extremities identified. IMPRESSION: 1. Single live intrauterine with appropriate interval growth. 2. Low-lying posterior placenta. Recommend follow-up third trimester ultrasound to re-evaluate. 3. anatomic survey is otherwise within normal limits. Approved by: Claudio Bolanos M.D. on 06/22/2024 at 17:14
== END ==
LOC: US 13:36
PROVIDERS: Referring Provider Student in an Organized Health Care Education/Training Program; Visit Provider Student in an Organized Health Care Education/Training Program
DX: O44.42 Low lying placenta NOS or without hemorrhage, second trimester (principal); Z3A.20 20 weeks gestation of pregnancy
CPT/HCPCS: 76811

== ENCOUNTER → 2024-08-03 09:30 | Outpatient (CLI) | payer OTHER, SELFPAY ==
[2024-08-03 12:21] LABS: Hematocrit 36.5 % (36-46); Hemoglobin 12.6 g/dL (12.0-16.0)
[2024-08-03 12:44] LABS: GTT (PREG) 1 Hour PP 50gm Dose 82 mg/dL (76-139)
== END ==
PROVIDERS: Referring Provider Obstetrics & Gynecology; Visit Provider Obstetrics & Gynecology
DX: Z13.1 Encounter for screening for diabetes mellitus (principal); Z13.0 Encounter for screening for diseases of the blood and blood-forming organs and certain disorders involving the immune mechanism
CPT/HCPCS: 36415; 82950; 85014; 85018

== ENCOUNTER → 2024-09-29 11:11 | Outpatient (CLI) | payer OTHER, SELFPAY ==
--- NOTE | 2024-09-29 11:11 | DI.US.S_ITS ---
PROCEDURE: US OB FOLLOW UP INDICATIONS: FOLLOW UP LOW LYING PLACENTA. SIZE < DATES OUTSIDE/PRIOR DATING DATA: Last menstrual period (LMP): 02/02/2024 LMP-based estimated date of delivery (ROBB): 11/08/2024 The calculations are made using the working ROBB of 11/08/2024. TECHNIQUE: Real-time scanning was performed of the fetus, with image documentation and biometric measurements. Endovaginal scanning: Not performed COMPARISON: [facility], , OB >= 14 WEEKS FETUS, 06/22/2024, 14:07. FINDINGS: General: A single living intrauterine gestation is present. Presentation: Vertex Placenta: Placental position is posterior, without previa. Amniotic fluid index: 12.4 cm, normal range is 5-24 cm. Single deepest vertical pocket is 4.0 cm. heart rate: 122 beats per minute. Maternal cervical canal: 4.5 cm long. Normal lower limit is 2.5 cm. biometrics: Biparietal diameter: 8.4 cm, 33 weeks, 5 days Head circumference: 31.4 cm, 35 weeks, 1 day Abdominal circumference: 31.1 cm, 35 weeks, 0 day. Femur length: 6.2 cm, 31 weeks, 6 days Clinically estimated gestational age: 34 weeks, 2 days Composite gestational age from present scan: 34 weeks, 0 day Estimated weight and percentile: 2337 g, 37%. Other: Not applicable. IMPRESSION: Single live intrauterine gestation with fetus in vertex presentation. heart rate is 122 beats per minute. Normal [place] at 12.4 cm. Estimated weight is at 37%. Femur length measures at 3%. We strive to produce accurate, complete, and clear reports of imaging services. To assist us in improving patient care, this report was composed using standard report templates and voice recognition software. Therefore, it may contain abnormal punctuation, insertions and/or omissions. Occasional wrong-word or sound-alike substitutions may occur. Though we review the report and make efforts to correct it, we do recommend that the report be read carefully in proper context to recognize any text inaccuracies. Dictated by: Edgar Rodriguez M.D. on 09/29/2024 at 18:22 Approved by: Edgar Rodriguez M.D. on 09/29/2024 at 18:34
== END ==
PROVIDERS: Referring Provider Specialist; Visit Provider Specialist
DX: O44.43 Low lying placenta NOS or without hemorrhage, third trimester (principal); Q51.3 Bicornate uterus; Z3A.34 34 weeks gestation of pregnancy
CPT/HCPCS: 76816; 76817; 76830

== ENCOUNTER → 2024-10-13 11:12 | Outpatient (CLI) | payer OTHER, SELFPAY ==
[2024-10-14 13:34] LABS: Strep Grp B PCR NEG for Grp B Strep
== END ==
PROVIDERS: Visit Provider Obstetrics & Gynecology
DX: Z34.83 Encounter for supervision of other normal pregnancy, third trimester (principal)
CPT/HCPCS: 87653

== ENCOUNTER 2024-10-27 09:48 | Outpatient (CLI) | payer OTHER, SELFPAY | END 2024-10-27 10:26 | disposition home or self-care (01) | LOC: LABOR 10:39 → OB 14:21 | PROVIDERS: Referring Provider Obstetrics & Gynecology; Visit Provider Obstetrics & Gynecology | DX: O36.8130 Decreased fetal movements, third trimester, not applicable or unspecified (principal); Z3A.38 38 weeks gestation of pregnancy | CPT/HCPCS: 59025; G0378; G0379 ==

== ENCOUNTER 2024-11-02 16:03 | Observation (INO) | payer OTHER, SELFPAY ==
[2024-11-02] MEDS: LACTATED RINGERS 1,000 ML 1000 ML IV (17:32)
--- NOTE | 2024-11-02 18:08 | PM.OBTRLD ---
Visit Information Visit Information Date of evaluation: 11/02/24 Primary OB Provider: Michael De Souza On-call OB Provider: Radha Sherwood Comments/Additional reasons for admission: 24yo at 39w1d here for contractions. Pt reports contractions starting around 1am, increasing in frequency and intensity throughout the day and persisting. She denies any vaginal bleeding or LOF. She is feeling her baby move regularly. She has been feeling slightly feverish at home without documented fever, with intermittent cough and nasal congestion. Her daughter and are currently sick at home with cough and fever. [facility] Medical History Heavy menstrual period (~2012) Vaginal delivery (~04/05/23) IUGR (intrauterine growth restriction) affecting care of mother Size of fetus inconsistent with dates in third trimester Ovarian cyst (~2019) IBS (irritable bowel syndrome) Surgical History Anesthesia [place] teeth extracted (~03/2021) Family History Brother Tetralogy of Fallot Mother Hypertension Depression Anxiety Grandmother Breast cancer Cancer of kidney Grandfather Heart disease Cancer Stroke Hyperlipidemia Grandfather Cancer Hypertension Father Depression Social History marital status: number of children: 1 household members: spouse lives independently: Yes caregiver/support person: Yes housing: [facility] ([facility] pets and animals: No education level: college (some college) 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 ) special nicole needs: No travel history: recent ([place]) and over 6 months ago seatbelt use: always helmet use: Yes water heater temp set < 120 deg: Yes working smoke detector in home: Yes fire extinguisher in home: Yes carbon monox detector in home: Yes firearms in home: Yes firearms unloaded and locked: Yes do you feel safe at home: Yes Smoking Status: Former smoker Tobacco: How many years used: 4 second hand exposure: No alcohol intake: former (very rarely when not ) substance use type: does not use during the past year weight has: other (back to pre-baby weight) well-balanced diet: daily or most days daily servings fruits/ve-4 caffeine: Yes (Aware of 200mg limit) Type(s) of exercise: aerobic and weight lifting frequency: 3-4 times per week Evaluation Evaluation Baseline heart rate: 150 Variability: Moderate (11-25) monitor accelerations: Present Monitor Decelerations: Absent Contraction Frequency (minutes): 6 Uterine Contraction Intensity: Moderate Status: Category l Cervical dilation (cm): 1.5 Cervical effacement (%): 50 station: -4 Diagnosis, Plan/Disposition Final Diagnosis (1) Viral URI: Status: Acute (2) Irregular contractions: Status: Acute Plan/Disposition Plan: 24yo at 39w1d here for contractions. No significant cervical change from clinic - overall contractions manageable and relatively spaced. Not in active labor. Initially FHT quite elevated to the 180s with some early decels, and maternal HR in the 120s as well. Pt given 1L IVF and FHT returned to 150s without any decels. Pt with temperature elevation here but not true fever, lungs clear on exam but does have a cough. Most likely viral URI and mild dehydration contributing to initial tachycardia. Pt encouraged to continue hydration at home, Tylenol PRN for fever. Pt is currently on the wish list for IOL. Stable for d/c home. OB Disposition: home
[2024-11-02] MEDS: ACETAMINOPHEN 325 MG TABLET 650 MG PO (18:19)
== END 2024-11-02 18:29 | disposition home or self-care (01) ==
PROVIDERS: Admitting Provider Obstetrics & Gynecology; PCP Obstetrics & Gynecology; Referring Provider Obstetrics & Gynecology; Visit Provider Obstetrics & Gynecology
DX: O47.1 False labor at or after 37 completed weeks of gestation (principal); O99.891 Other specified diseases and conditions complicating pregnancy; O99.513 Diseases of the respiratory system complicating pregnancy, third trimester; R00.0 Tachycardia, unspecified; J06.9 Acute upper respiratory infection, unspecified; Z3A.39 39 weeks gestation of pregnancy
CPT/HCPCS: 36415; 59025; 59050; 96360; G0378; G0379

== ENCOUNTER 2024-11-05 19:35 | Inpatient (IN) | payer OTHER, SELFPAY ==
[2024-11-05 20:39] LABS: Add Manual Diff / Slide Review NO; Basophils Absolute Auto 100 /uL (0-100); Basophils Percent Auto 0.8 % (0-2); Eosinophils Absolute Auto 100 /uL (0-450); Hematocrit 38.1 % (36-46); Hemoglobin 13.2 g/dL (12.0-16.0); Lymphocytes Absolute Auto 1400 /uL (1100-4500); Lymphocytes Percent Auto 20.6 % (25-40); Mean Corpuscular HGB Conc 34.6 % (30-36); Mean Corpuscular Hemoglobin 31.4 PG (26-34); Mean Corpuscular Volume 90.8 fL (80-100); Monocytes Absolute Auto 700 /uL (0-900); Monocytes Percent Auto 10.6 % (3-14); Neutrophils Absolute Auto 4500 /uL (1500-7000); Platelet Count 204 X10^3/uL (150-400); Red Cell Distribution Width 13.9 % (11.6-14.8); White Blood Cell Count 6.6 X10^3/uL (4.5-11.0)
[2024-11-05] MEDS: miSOPROStoL 25 MCG TABLET 50 MCG PO (21:10)
[2024-11-05 21:21] VITALS: BP 116/69
[2024-11-06] MEDS: LACTATED RINGERS 1,000 ML 100 ML IV ×2 (08:22→13:12)
[2024-11-06] MEDS: OXYTOCIN PREMIX 30 UNIT/500 ML PLAST..BAG IV (08:23)
--- NOTE | 2024-11-06 10:18 | PM.OBHP.IH.1 ---
OB HPI Date/Time Date of admission: 11/05/24 Date Patient Seen: 11/06/24 Time Patient Seen: 07:30 History of Present Condition Chief complaint: IUP, 39+5 wks, elective induction Date of Last Menstrual Period: 02/02/24 ROBB Calculator Estimated Delivery Date Method Current WG Current Estimate 11/08/24 LMP (Certain) 40w 3d Other Estimates 11/09/24 Ultrasound #1 40w 2d Estimated Gestational Age (weeks): 39+5 : 3 Para: 1 care: good care Dating criteria OB: LMP confirmed by 1st trimester US Ultrasounds: normal 1st trimester US and normal mid trimester US Obstetrical complications: none Medical complications OB: none Indications Indication for induction OB: other (Elective, maternal discomfort) Preadmission Labs Last OB Lab Results: Blood Type O Positive 11/05/24 20:15 Antibody Screen Negative 11/05/24 20:15 Hct 31.7 % (36-46) L 11/07/24 07:16 Hgb 11.1 g/dL (12.0-16.0) L 11/07/24 07:16 Hep Bs Antigen Negative s/c (NEGATIVE) 05/04/24 14:23 Hepatitis C Antibody Negative s/c (NEGATIVE) 05/04/24 14:23 Rubella Antibody 66.3 IU/mL (>15) 05/04/24 14:23 VZV IgG Antibody 208 index (Immune >165) 05/04/24 14:23 Glucose 1 Hr 50 gm 82 mg/dL (76-139) 08/03/24 10:49 Group B Strep (PCR) Neg for grp b strep 10/13/24 11:15 -: Chlamydia screen: negative, Gonorrhea screen: negative and Urine: negative -: PAP smear: Normal Genetic Screens: Quad screen: Normal External Labs -: Urine: negative Prior (ies) Past Pregnancies Del. Date GA/Weeks Labor Lgth Wt Sex Route Outcome Anesthesia Place Delv Breastfeed Preg Comp Name 01/07/22 4-5 spontaneous 04/05/23 38 4 6 lb 11 oz Female vaginal live - full term epidural IH 8 months other Elvie Delivery Date: 01/07/22 Last Updated by: Diana Goodman RN Passed spontaneously, no complications Delivery Date: 04/05/23 Last Updated by: Diana Goodman RN suspected IUGR, but baby actually born totally normal size Hx # Term Pregnancies: 1 Hx # Pregnancies: 0 Number of Living Children: 1 Multiple births: 0 Spontaneous abortions: 1 Ectopic pregnancies: 0 Elective abortions: 0 Evaluation Evaluation Baseline heart rate: 145 Variability: Moderate (11-25) monitor accelerations: Present Monitor Decelerations: Absent Uterine Contraction Intensity: Mild Category of Tracing: Reactive Status: Category l Dilation (cm): 2 Effacement (%): 80 Dilation: 1-2 cm Effacement: >/=80% station: -2 Position of cervix: mid Consistency: soft Villagomez score: 8 [facility] Medical History Heavy menstrual period (~2012) Vaginal delivery (~04/05/23) IUGR (intrauterine growth restriction) affecting care of mother Size of fetus inconsistent with dates in third trimester Ovarian cyst (~2019) IBS (irritable bowel syndrome) Surgical History Anesthesia [place] teeth extracted (~03/2021) Family History Brother Tetralogy of Fallot Mother Hypertension Depression Anxiety Grandmother Breast cancer Cancer of kidney Grandfather Heart disease Cancer Stroke Hyperlipidemia Grandfather Cancer Hypertension Father Depression Social History marital status: number of children: 1 household members: spouse lives independently: Yes caregiver/support person: Yes housing: [facility] pets and animals: No education level: college (some college) 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 ) special nicole needs: No travel history: recent ([place]) and over 6 months ago seatbelt use: always helmet use: Yes water heater temp set < 120 deg: Yes working smoke detector in home: Yes fire extinguisher in home: Yes carbon monox detector in home: Yes firearms in home: Yes firearms unloaded and locked: Yes do you feel safe at home: Yes Smoking Status: Former smoker Tobacco: How many years used: 4 second hand exposure: No alcohol intake: former (very rarely when not ) substance use type: does not use during the past year weight has: other (back to pre-baby weight) well-balanced diet: daily or most days daily servings fruits/ve-4 caffeine: Yes (Aware of 200mg limit) Type(s) of exercise: aerobic and weight lifting frequency: 3-4 times per week Meds Home Medications and Allergies Home Medications Medication Instructions Recorded Confirmed Type prenat.vits,tiny,wjq-rcsg-rfluu 1 tab PO DAILY 08/21/22 11/05/24 History sertraline 50 mg tablet 50 mg PO DAILY Anxiety 01/21/24 11/05/24 Rx #30 tabs benzonatate 100 mg capsule 100 mg PO BID-TID PRN cough #30 04/11/24 11/03/24 Rx caps rmjkyomdnb-rligmmvxxvuar-ftuqkoca 2 cap PO Q6H PRN pain #30 caps 05/26/24 11/03/24 Rx 50 mg-325 mg-40 mg capsule Allergies Allergy/AdvReac Type Severity Reaction Status Date / Time No Known Drug Allergies Allergy Verified 11/03/24 10:45 Review of Systems Review of Systems Narrative: Problem-specific ROS positives included in HPI OB Exam Vital signs Blood Pressure: 116/69 Pulse Rate: 81 Respiratory Rate: 16 Temperature: 96.6 F HENMT Head: normal to inspection, normocephalic and atraumatic Eyes General: appearance normal, both eyes and all related structures Resp Effort & Inspection: normal respiratory effort and able to speak in complete sentences Auscultation: clear to auscultation bilaterally Cardio Rate: regular rate Rhythm: regular rhythm Heart Sounds: S1 normal, S2 normal and no murmurs Extremities Lower extremity: Yes normal to inspection GI Inspection: normal to inspection Palpation: Yes soft and Yes no hepatosplenomegaly Uterus Location (Fundal Height): 36 Estimated Weight (lbs): 7 Objective Labs 11/07/24 07:16 Labs: Laboratory Results - last 24 hr 11/05/24 20:15 WBC 6.6 RBC 4.20 Hgb 13.2 Hct 38.1 MCV 90.8 MCH 31.4 MCHC 34.6 RDW 13.9 Plt Count 204 Neut % (Auto) 67.0 Lymph % (Auto) 20.6 L [place] % (Auto) 10.6 Eos % (Auto) 1.0 L Baso % (Auto) 0.8 Neut # (Auto) 4500 Lymph # (Auto) 1400 [place] # (Auto) 700 Eos # (Auto) 100 Baso # (Auto) 100 Blood Type O Positive Antibody Screen Negative Assessment and Plan Assessment and Plan Assessment and Plan narrative: ASSESSMENT 1. Intrauterine , 39+ 4 weeks gestational age, admitted for elective induction 2. GBS negative status PLAN 1. Admit for ripening and delivery 2. See admission orders Time-Based Coding :: [TOTAL MINUTES] spent with patient and on the chart (including review of chart, obtaining history, exam, reviewing outside data, placing orders, documenting exam and treatment plan, and counseling patient) on [DATE].
--- NOTE | 2024-11-06 10:44 | PM.AN.REGBLK ---
Regional Block Pre-procedure PMH/ROS narrative: active labor requesting CECILE PSH/Anesthesia history narrative: epidural x 1 - no complications ASA Class: II Labs: Hct 38.1 % (36-46) 11/05/24 20:15 Plt Count 204 X10^3/uL (150-400) 11/05/24 20:15 Medications: Current Medications Generic Name Dose Route Start Last Admin Trade Name Freq PRN Reason Stop Dose Admin Calcium Carbonate 1,000 mg 11/05/24 20:26 Calcium Carbonate 500 Mg Tab PO Q2HR PRN Dyspepsia Carboprost Tromethamine 250 mcg 11/05/24 20:26 Carboprost 250 Mcg/Ml Ampul IM Q90M PRN Bleeding Fentanyl 50 mcg 11/05/24 20:26 Fentanyl 100 Mcg/2 Ml Inj IV Q1H PRN Pain, Moderate (4-6) Oxytocin/Lactated Ringer's 30 unit in 500 mls @ 200 mls/hr 11/05/24 20:26 Oxytocin Premix IV CONT PRN Bleeding Protocol Tranexamic Acid 1,000 mg/ 100 mls @ 600 mls/hr 11/05/24 20:26 Sodium Chloride IV NOW PRN Bleeding Oxytocin/Lactated Ringer's 30 unit in 500 mls @ 2 mls/hr 11/05/24 20:30 11/06/24 08:23 Oxytocin Premix IV 2 milliunit/min TITRATE GUME 2 mls/hr Administration Protocol 2 MILLIUNIT/MIN Lidocaine HCl 20 ml 11/05/24 20:26 Lidocaine 1% 20 Ml INJ INTRA-OP PRN Post Delivery Methylergonovine Maleate 0.2 mg 11/05/24 20:26 Methylergonovine 0.2 Mg Tablet PO Q6HR PRN Heavy Bleeding Methylergonovine Maleate 0.2 mg 11/05/24 20:26 Methylergonovine 0.2 Mg/Ml Vial IM NOW PRN Bleeding Mineral Oil 30 ml 11/05/24 20:26 Mineral Oil 30 Ml Udc TOP PRN PRN Version Misoprostol 800 mcg 11/05/24 20:26 Misoprostol 200 Mcg Tablet PA NOW PRN Bleeding Misoprostol 400 mcg 11/05/24 20:26 Misoprostol 200 Mcg Tablet SL NOW PRN Bleeding Misoprostol 50 mcg 11/05/24 20:26 11/05/24 21:10 Misoprostol 25 Mcg Tablet PO 50 mcg Q6H PRN Administration cervical ripening Naloxone HCl 0.2 mg 11/05/24 20:26 Naloxone 0.4 Mg/Ml Vial IV Q2MIN PRN Opiate Reversal Ondansetron HCl 4 mg 11/05/24 20:26 Ondansetron 4 Mg/2 Ml Inj IV Q4HR PRN Nausea And Vomiting Oxytocin 10 unit 11/05/24 20:26 Oxytocin 10 Unit/Ml Vial IM NOW PRN Bleeding Zolpidem Tartrate 10 mg 11/05/24 20:31 Zolpidem 5 Mg Tablet PO BEDTIME PRN Sleep Allergies: Allergies Allergy/AdvReac Type Severity Reaction Status Date / Time No Known Drug Allergies Allergy Verified 11/03/24 10:45 --: in room 1009 sterile prep 1012 catheter 1020 test 1021 pump start 1031 1st attempt heme, moved up one interspace. no complications. v/s/s Procedure Insertion date: 11/06/24 Insertion time: 10:20 Prep/Local: betadine x3 and 1% lidocaine Interspace: l3 l4 Needle: 17 gauge Tuohy Loss of resistance with: saline MAYITO at (cm): 6 Catheter placed at SKIN (cm): 12 Initial Medications TEST DOSE time: 10:21 BOLUS DOSE time: 10:28 BOLUS DOSE (mL): 5 BOLUS DOSE med: other (bupivacaine 0.0625% with fentanyl 2mcg/ml) Infusion INFUSION: with fentanyl 2 mcg/mL and 0.0625% bupivacaine Initial rate (mL/hr): 10 Subsequent interventions: PCEA 4 q 20 minutes Post-procedure Anesthesia date START: 11/06/24 Anesthesia time START: 10:09
--- NOTE | 2024-11-06 14:43 | P.PCNOB_ITS ---
Labor & Delivery Delivery date: 11/06/24 Delivery Time: 14:12 Intrapartal Events: None Cervical ripening method: per misoprostal protocol Induction method: per pitocin protocol Delivery augmentation: rupture of membranes Delivery monitor: external FHT Route of delivery: Episiotomy description: None L&D Laceration Description: Labial (Right, 1st degree) Delivery repair: chromic Estimated blood loss (mL): 250 Anesthesia Type: Epidural Complications: None Narrative: Following an 11 minute second stage, patient delivered spontaneously over an intact perineum, a viable male infant with Apgars of 8/9, weight 3478 gms (7 lbs. 10.7 oz.). No soulder dystocia or cord entanglement was encountered. Okxw-dg-etqm contact initiated immediately. Delayed cord clamping performed and once the cord was clamped and cut, a cord blood specimen was obtained for routine studies. The placenta delivered spontaneously with gentle cord traction and suprapubic countertraction. The placenta was inspected carefully and found to be intact with central insertion of a 3 vessel cord. IV Pitocin was initiated immediately following delivery of the placenta and post-delivery bleeding was quickly brought under control. Inspecdtion of jayla perineum showed a first degree right labial tear which was repaired with 3-0 CCGS. Inspection of the perineum showed a very superficial first-degree abrasion which did not require closure. Sponge, instrument, and needle counts were all correct at the completion of the delivery process which was well tolerated by both mother and baby. [place] Baby 1: Infant gender: Male Presentation: vertex Position: Left Occiput Anterior Placenta delivery description: Spontaneous Cord Vessel Description: 3 Vessels score (1 min): 8 score (5 min): 9 weight: 7 lb 10.683 oz Plan for aftercare: Routine care
[2024-11-06] MEDS: DERMOPLAST SPRAY 20% 60 ML 1 SPRAY TOP (16:51)
[2024-11-06] MEDS: IBUPROFEN 600 MG TABLET PO (16:52)
[2024-11-06] MEDS: WITCH HAZEL/GLYCERIN PADS 1 EACH TOP (16:52)
[2024-11-06] MEDS: LANOLIN OINT 7 GM 1 APPLIC TOP (16:52)
[2024-11-06] MEDS: ONDANSETRON 4 MG ODT SL (17:57)
[2024-11-07] MEDS: IBUPROFEN 600 MG TABLET PO ×3 (00:02→11:42)
[2024-11-07 07:23] LABS: Add Manual Diff / Slide Review NO; Basophils Absolute Auto 100 /uL (0-100); Basophils Percent Auto 0.7 % (0-2); Eosinophils Absolute Auto 100 /uL (0-450); Eosinophils Percent Auto 1.1 % (2-4); Hematocrit 31.7 % (36-46); Hemoglobin 11.1 g/dL (12.0-16.0); Lymphocytes Absolute Auto 2400 /uL (1100-4500); Lymphocytes Percent Auto 24.6 % (25-40); Mean Corpuscular HGB Conc 35.1 % (30-36); Mean Corpuscular Hemoglobin 31.6 PG (26-34); Mean Corpuscular Volume 90.1 fL (80-100); Monocytes Absolute Auto 900 /uL (0-900); Monocytes Percent Auto 8.7 % (3-14); Neutrophils Absolute Auto 6400 /uL (1500-7000); Neutrophils Percent Auto 64.9 % (50-75); Platelet Count 185 X10^3/uL (150-400); Red Blood Cell Count 3.52 X10^6/uL (4.0-5.2); White Blood Cell Count 9.9 X10^3/uL (4.5-11.0)
--- NOTE | 2024-11-07 10:46 | PM.OBDS.1 ---
Discharge Providers Provider Date of admission: 11/05/24 19:35 Discharge Date: 11/07/24 Primary care physician: Michael De Souza MD Consults: 11/05/24 20:26 Consult to Anesthesiology Urgent Comment: Consulting Provider: Anesthesiologist Reason for consultation: Epidural 11/07/24 14:40 Consult to Maritime Engineer Routine Comment: Discharge provider: Michael De Souza MD Summary Hospital Course Date Patient Seen: 11/07/24 Time Patient Seen: 10:47 Diagnoses: Intrauterine gestation, 39+5 wks EGA, delivered by stontaneous vaginal GBS negative status Hospital Course: [place] was admitted on the evening of 11/05/2024 for cervical ripening with oral misoprostol. The ripening resulted in significant cervical change by the morning of 11/06/2024 and patient experienced spontaneous rupture membranes. She had intermittent augmentation with Pitocin and on the afternoon of 11/06/2023 delivered a viable male with Apgars of 8/9, and a weight of 3478 g (7 lb 10.7 oz). Following delivery both mother and baby have done extremely well with the mother experiencing prompt return of bowel and bladder function, she is ambulating independently, tolerating regular diet, and her pain is well controlled with oral pain medications. Patient will be discharged at this time in an afebrile normotensive condition to home after counseling regarding precautionary symptoms, limitations activity, medications, and plans for follow-up which will be in 6 weeks. Peripartum Data Infant Delivery Method: Natural Vaginal Laceration Description: Perineal - 1st Degree (No closure required) and Labial (R, 1st degree) Procedures: Continuous lumbar epidural Spotanous vaginal complications: none [place] 1: Gender: Male Disposition of : home Status at Discharge Cognitive/behavioral status at discharge: oriented Functional status at discharge: independent ambulation Overall status at discharge: patient is progressing back to baseline Time Spent with Patient Time attestation: Total time spent providing and/or coordinating discharge services: Time spent: Less than 30 minutes Objective Labs 11/07/24 07:16 Labs: Laboratory Results - last 24 hr 11/07/24 07:16 WBC 9.9 RBC 3.52 L Hgb 11.1 L Hct 31.7 L MCV 90.1 MCH 31.6 MCHC 35.1 RDW 14.0 Plt Count 185 Neut % (Auto) 64.9 Lymph % (Auto) 24.6 L [place] % (Auto) 8.7 Eos % (Auto) 1.1 L Baso % (Auto) 0.7 Neut # (Auto) 6400 Lymph # (Auto) 2400 [place] # (Auto) 900 Eos # (Auto) 100 Baso # (Auto) 100 Exam Const General: cooperative and comfortable Nutritional Appearance: average body habitus Orientation: alert and oriented x3 HENMT Head: normal to inspection, atraumatic and abrasion Ears: hearing grossly normal bilaterally Face and sinus: face symmetric Eyes General: appearance normal, both eyes and all related structures Conjunctivae: conjunctivae normal Sclera: sclerae normal EOM: EOM intact bilaterally Neck Neck: normal visual inspection Resp Effort & Inspection: normal respiratory effort and able to speak in complete sentences GI Inspection: normal to inspection Palpation: soft and no hepatosplenomegaly External Female Exam: other (No significant bleeding noted) Extrem General: no calf tenderness Psych Appearance: grossly normal Mental Status: mental status grossly normal Speech and Movement: speech and movement normal Mood: congruent mood Affect: normal affect Attitude: cooperative Thought Process: normal Thought Content: normal Judgment: judgment good Discharge Plan Discharge Plan Patient Disposition: Home Provider Discharge Comment: please review the written instructions you received when you were discharged from the hospital. Your follow-up appointment is scheduled for 2 weeks after delivery and I look forward to seeing you then. If however you have any issues, concerns, or questions in the meanwhile, please contact me either through the office phone at [phone], or via the patient portal. Discharge orders & Medications Prescriptions: Continued sertraline 50 mg tablet 50 mg PO DAILY Qty: 30 6RF Rx Instructions: Take 1/2 tablet daily for 3 days then increase to full dose dvzryyccnz-rzuhobemmlisu-regv 50-325-40 mg capsule 2 cap PO Q6H PRN (Reason: pain) Qty: 30 0RF Rx Instructions: do not exceed 6 tabs per 24 hrs prenat.vits,tiny,des-yugg-jdipp Tablet 1 tab PO DAILY benzonatate 100 mg capsule 100 mg PO BID-TID PRN (Reason: cough) Qty: 30 0RF Follow up/Referrals: Michael De Souza MD [Primary Care Provider] - 6 Weeks (Please call the clinic on Saturday (11/09) to schedule a [address] up with [address] De Souza. ) Discharge Health Status Multidrug resistant organism: No MDRO Diet/Activity/Treatments Diet: Diet as Tolerated Activity: As tolerated Other treatments: Bwda-yto-apsemqa Tylenol and/or ibuprofen may be used for additional pain relief. Ljvw-doc-tlznrlq stool softeners and/or MiraLax may be used as needed for constipation. Skin/Wound/Dressing Care Report to your healthcare provider any signs of infection, such as:: chills, fever, increased pain, unusual drainage and unusual redness Visit Report/Discharge Packet Instructions: DI for Labor and Delivery, Vaginal , DI for and Nipple Soreness Stand Alone Forms: Discharge: Care Discharge Data Primary Care Provider: Michael De Souza
[2024-11-07 10:57] VITALS: BP 103/64; PULSE 63; RESP 15; TEMP 36.7
[2024-11-11 07:44] VITALS: BP 116/69; PULSE 81; RESP 16; TEMP 35.9
== END 2024-11-07 11:45 | disposition home or self-care (01) | DRG 807 ==
PROVIDERS: Admitting Provider Obstetrics & Gynecology; PCP Obstetrics & Gynecology; Referring Provider Obstetrics & Gynecology; Visit Provider Obstetrics & Gynecology
DX: O80 Encounter for full-term uncomplicated delivery (principal); Z37.0 Single live birth; Z3A.39 39 weeks gestation of pregnancy
CPT/HCPCS: 36415; 59050; 59200; 59400; 85025; 86850; 86900; 86901; G0379; J2590